=== PATIENT | female | born 1950 | race Caucasian/White ===

== ENCOUNTER → 2016-04-01 | Outpatient (REF) | payer MEDICARE ==
[~2016-04-01] MED LIST: CALCTAB75 PO; MULTCAP PO
[2016-04-01 13:11] LABS: EOSINOPHILS 1 % (0-5); PLATELET CLUMPS SMALL AMT
== END | disposition home or self-care (01) ==
LOC: M LAB REF 11:51
DX: E21.3 Hyperparathyroidism, unspecified (principal); D47.2 Monoclonal gammopathy; D35.1 Benign neoplasm of parathyroid gland; J44.9 Chronic obstructive pulmonary disease, unspecified

== ENCOUNTER → 2016-04-28 | Outpatient (CLI) | payer MEDICARE ==
[~2016-04-28] MED LIST changes: +ISOVUE-370 76% 100ML VIAL (Q9967) As Ordered ONE
--- NOTE | 2016-04-28 10:01 | REP ---
CT NECK WITH CONTRAST: HISTORY: Lymphoma. CONTRAST: Isovue 370, 75 mL. COMPARISON: 11/17/2015. The naso-, maxwell-, and hypopharynx, larynx and subglottic trachea are normal in appearance. The previously noted mass in the right hypopharynx is not seen in the present examination. The salivary glands are normal. The patient is status post resection of the left thyroid lobe. The right thyroid lobe is normal in appearance. Small lymph nodes less than 1 cm in size are present in the internal jugular chains, posterior triangles, submandibular and submental areas. Atherosclerotic calcification is present at the carotid bifurcations. Degenerative change is present in the cervical spine. The lung apices are clear. The sinuses are clear. A catheter is present in the right internal jugular vein. IMPRESSION: The previously noted right hypopharyngeal mass is not seen in the present examination. There is no residual tumor. Signed by Javi Trinidad MD 04/28/2016 10:03 A
--- NOTE | 2016-04-28 10:13 | REP ---
CT study of chest with IV contrast: History: Marginal zone lymphoma. Assess response, chemotherapy. Comparison is made with PET-CT study from December 03 2015. This showed hypermetabolic uptake in a right laryngeal and an anterior mediastinal focus. Comparison chest CT study is from November 17, 2015. This showed a 2.4 cm yoshi area in the anterior mediastinum. CT contrast dose: 75 ml of Isovue [address] findings: There is an [id number] catheter in place via the right internal jugular vein with its tip in the superior vena cava. The previously noted anterior mediastinal mass has regressed almost completely. There is a residual 5 mm soft tissue nodule at the site of the previously visible mass. No new mediastinal mass or adenopathy has developed. There are one or two stable paratracheal lymph nodes. Heavy vascular calcification is seen including coronary artery vascular calcification. No adrenal lesion is observed. There is a configurational variant of the liver again seen unchanged with absence or resection or atrophy of the left lobe. No axillary or extrathoracic adenopathy is seen. The left thyroid lobe is surgically absent. No bony destructive lesion is seen. No evidence of infiltrate or pulmonary parenchymal mass. Impression: The previously noted anterior mediastinal mass has regressed almost completely. No new mass or adenopathy is seen. Signed by Rigo Jung MD 04/28/2016 12:25 P
== END ==
LOC: M RAD 09:04
PROVIDERS: ATTEND Internal Medicine Medical Oncology
DX: C85.90 Non-Hodgkin lymphoma, unspecified, unspecified site (principal)
CPT/HCPCS: 70491; 71260; Q9967

== ENCOUNTER → 2016-11-05 | Outpatient (REF) | payer MEDICARE ==
[~2016-11-05] MED LIST changes: -ISOVUE-370 76% 100ML VIAL (Q9967) As Ordered ONE
[2016-11-05 14:06] LABS: FREE T4 1.11 NG/DL (0.76-1.46)
== END ==
LOC: M LAB REF 08:33
PROVIDERS: ATTEND Internal Medicine Medical Oncology
DX: C88.4 Extranodal marginal zone B-cell lymphoma of mucosa-associated lymphoid tissue [MALT-lymphoma] (principal); Z79.899 Other long term (current) drug therapy

== ENCOUNTER → 2016-11-23 | Outpatient (CLI) | payer MEDICARE ==
[~2016-11-23] MED LIST changes: +LIDOCAINE 2% MDV 20 ML VIAL As Ordered ONE
--- NOTE | 2016-12-01 09:18 | REPKIM ---
DATE OF PROCEDURE: 11/23/2016 PREPROCEDURE DIAGNOSES: Lymphoma. Right internal jugular vein Port-a-Cath. POSTPROCEDURE DIAGNOSES: Lymphoma. Right internal jugular vein Port-a-Cath. PROCEDURE: Right internal jugular vein Port-a-Cath removal. SURGEON: Dr. Latonya Solis ANESTHESIOLOGY CRNA: Emeli Larson and Judy Coelho. ANESTHESIA: Local with 10 mL of 2% lidocaine. COMPLICATION: None. DRAINS: None. SPECIMENS: None. IMPLANTS: None. INDICATION: The patient is a 66-year-old female with a previous placement of a right internal vein Port-a-Cath who no longer require the Port-a-Cath. The patient will undergo removal of the Port-a-Cath. DESCRIPTION OF PROCEDURE: The patient was taken to the angiograph suite and placed supine on the angiography room table and then prepped and draped in the standard surgical fashion. The skin overlying the Port-a-Cath was anesthetized with 2% lidocaine after which an incision was made and the Port-a-Cath was removed without any difficulty. The incision was closed using #2-0 Vicryl to approximate the deep layers and #3-0 Monocryl to approximate the skin in a running subcuticular fashion. Steri-Strips and dressings were applied. The patient tolerated the procedure well. All instruments, sponge and needle counts were correct at the end of the case. There were no complications. Dr Solis was present for and directed the entire case. The patient was transferred to the holding area and subsequently discharged in stable condition.
== END | disposition home or self-care (01) ==
LOC: M IRPRO 08:22
PROVIDERS: ATTEND Internal Medicine Medical Oncology
DX: Z45.2 Encounter for adjustment and management of vascular access device (principal); C85.90 Non-Hodgkin lymphoma, unspecified, unspecified site

== ENCOUNTER → 2016-12-03 | Outpatient (CLI) | payer MEDICARE ==
[~2016-12-03] MED LIST changes: -LIDOCAINE 2% MDV 20 ML VIAL As Ordered ONE
--- NOTE | 2016-12-03 10:52 | REP ---
MAXILLOFACIAL CT WITHOUT CONTRAST: HISTORY: Chronic maxillary sinusitis. The frontal sinuses are hypoplastic. Moderate mucosal thickening is present in the maxillary and right sphenoid sinuses. Mild mucosal thickening is present in the right ethmoid sinus. Minimal mucosal thickening is present in the frontal and left ethmoid sinuses. Mucosal thickening involves the osteomeatal units. The middle and inferior nasal turbinates are partially paradoxical. There is minimal deviation of the nasal septum to the left. The cribriform plate, medial kwok of the orbits and optic canals are intact. The carotid canals form a segment of the posterolateral kwok of the sphenoid sinus. IMPRESSION: Sinus mucosal thickening as described above. Signed by Javi Trinidad MD 12/03/2016 10:55 A
== END ==
LOC: M RAD 10:03
PROVIDERS: ATTEND Otolaryngology
DX: J32.0 Chronic maxillary sinusitis (principal)

== ENCOUNTER → 2017-02-08 | Outpatient (CLI) | payer MEDICARE ==
[~2017-02-08] MED LIST changes: +GASTROGRAFIN SOLUTION 30ML (Q9963) As Ordered ONE; +ISOVUE-370 76% 100ML VIAL (Q9967) As Ordered ONE
--- NOTE | 2017-02-09 17:05 | REP ---
CT CHEST WITH CONTRAST 02/08/2017 : Comparison: 04/28/2016, 11/17/2015 Clinical history: Non-Hodgkin's lymphoma with symptoms of cough and dyspnea, evaluate for recurrence or other. Technique: The patient received a bolus of 100 mL Isovue-370 scanning through the chest with coronal and sagittal reconstructions. The lung rasmussen are well inflated. No pleural thickening, calcified pleural plaque or acute infiltrate. No effusion, pneumothorax or pneumomediastinum. There are a few segmental bronchi equal to the size of adjacent segmental arteries that may reflect some very mild bronchiectatic change. No pulmonary nodules. The heart is not enlarged. There is no pericardial thickening or effusion. There are some calcifications in some of the coronary arteries. The aorta is without aneurysm or dissection and has calcifications at the arch and descending portion. The main, right and left pulmonary arteries and proximal lobar arteries are visible without filling defects. No pathologic sized mediastinal or hilar adenopathy. No residual mediastinal thymic mass nor pathologic sized adenopathy remaining. There is fluid in the superior pericardial recess adjacent to the ascending aorta, unchanged. No axillary adenopathy, specific chamber enlargement or pericardial thickening/effusion. No axillary or supraclavicular mass. Indwelling port catheter on the right side is removed. Bone windows show the sternum, manubrium, clavicles intact. The AC and glenohumeral joints show some degenerative changes but no destructive lesion or fractures. Scapula, ribs and thoracic spine without acute bony findings. There is no hiatal hernia. The upper abdomen will be described in detail on the CT abdomen pelvis report. Impression: 1. No evidence of mediastinal mass or recurrent tumor mass/adenopathy in the mediastinum. 2. No pathologic sized adenopathy in the axilla supraclavicular region. Merry or remainder of the mediastinum. 3. Heart not enlarged. Some coronary calcifications seen. Aorta without aneurysm or dissection and the central pulmonary arteries without filling defects. Bones intact. No other significant finding. Signed by Wolf Galdamez MD 02/09/2017 05:28 P
--- NOTE | 2017-02-09 17:09 | REP ---
CT ABDOMEN AND PELVIS WITHOUT AND WITH CONTRAST: 02/08/2017. Comparison: CT 11/17/2015. Clinical history: Non-Hodgkin's lymphoma with some recurrent chest symptoms. Evaluate for recurrence in the abdomen or pelvis. Technique: Oral Gastrografin mixture 10 mL in 290 mL flavored water for two doses per our bowel contrast protocol with scanning through the abdomen followed by bolus of 100 mL Isovue 370 with scanning through the abdomen and pelvis and delayed scanning through the abdomen. Findings: CT abdomen. No hiatal hernia. Stomach well distended with oral contrast, with contrast seen throughout small bowel loops which are not abnormally dilated and some reaches the cecum and proximal right colon. There is no hepatosplenomegaly, focal hepatic or splenic lesion, intrahepatic biliary dilatation or adjacent ascites to the liver or the spleen. Gallbladder folded on itself without calcified stone or mass. Appearance unchanged. Pancreas without mass, ductal dilatation, abnormal calcification, inflammatory changes or adenopathy adjacent. Adrenal gland show thickening of limbs on the left and right, unchanged. The aorta has atherosclerotic calcification without aneurysm. No periaortic or other retroperitoneal pathologic sized lymphadenopathy. There is a retroaortic left renal vein as anatomic variation. No periaortic or retroperitoneal pathologic sized lymphadenopathy nor is there mesenteric or retroperitoneal masses visible. Small bowel loops contrast and fluid-filled but not abnormally dilated and without wall thickening, mass or adjacent inflammatory change in the mesentery. Stool and gas scattered in the colon. The right colon is collapsed with questionable wall thickening while the transverse colon portion of the hepatic flexure, the entire splenic flexure were intact. Left colon without colitis or diverticulitis and the right colon mild colitis is not excluded with a collapsed appearance and somewhat thickened wall. No adjacent inflammatory change, however. Kidneys show a few tiny peripheral cysts on the right while there is an exophytic cyst on the left lower pole about 3.2 cm, on the previous exam 3 cm. This is just inferior to the adjacent margin of the lower tip of the spleen. There is another exophytic cyst anterior to it in the lateral aspect lower pole about 11 mm. A few scattered diverticula without signs of diverticulitis. There are surgical clips along the peritoneal gutters on the left and into the pelvis. CT pelvis: Small bowel loops grossly intact. There are surgical clips along the left peritoneal gutter into the deep pelvis. Uterus intact. Some anastomotic sutures are noted. The pelvis shows no visible mass. No adnexal mass or pelvic free fluid. Thickening of the wall of the cecum, which may reflect some mild colitis and a similar appearance is seen in that right colon to the hepatic flexure. No adjacent inflammatory change. I do not see a dilated or inflamed appendix on this study. No pelvic lymphadenopathy, inguinal adenopathy, ventral or inguinal hernia. Bone windows show lumbar and lower thoracic vertebral levels without compression deformity. There are marginal osteophytes and disc space narrowing at several levels in the lower thoracic and mid lumbar spine without compression deformity or destructive lesion. Some facet arthropathy seen. Lower ribs intact. In the pelvis, the sacrum, SI joints, iliac bones, hips, acetabuli and symphysis pubis were all grossly intact. Impression: 1. There is no CT evidence of abdominal or pelvic adenopathy. 2. Thickening of the wall of the right colon and cecum with some edema, but no adjacent inflammatory change in the fat. This may reflect some mild colitis. I do not see inflammatory changes about the distal right colon, cecum to suggest appendicitis. No visible appendix is seen on this study. 3. Atherosclerotic calcification aorta and branches without aneurysm. No obstruction. Small bowel loops and remainder of the colon were unremarkable. A few left renal cysts. Kidneys otherwise unremarkable and the gallbladder and pancreas without acute finding. 4. No evidence of recurrence of lymphoma. No adenopathy, mesenteric mass, acute bony finding or other significant abnormality. Signed by Wolf Galdamez MD 02/09/2017 05:29 P
== END ==
LOC: M RAD 15:42
PROVIDERS: ATTEND Internal Medicine Medical Oncology
DX: C85.80 Other specified types of non-Hodgkin lymphoma, unspecified site (principal); R05 Cough; R06.02 Shortness of breath; R93.5 Abnormal findings on diagnostic imaging of other abdominal regions, including retroperitoneum
CPT/HCPCS: 71260; 74178; Q9963; Q9967

== ENCOUNTER → 2017-03-11 | Outpatient (REF) | payer MEDICARE | LOC: M LAB REF 14:44 | DX: R05 Cough (principal) | CPT/HCPCS: 87205 ==

== ENCOUNTER 2017-03-18 08:21 | Day surgery (SDC) | payer MEDICARE ==
[2017-03-18] MEDS ORDERED: NS 1,000 ML IV ×2 (09:00)
[2017-03-18] MEDS ORDERED: PROPOFOL 200 MG/20 ML VIAL As Ordered ×2 (10:16)
[2017-03-18] MEDS ORDERED: LIDOCAINE 2% INJ 100 MG/5 ML SDV (FOR ANES.) As Ordered ×2 (10:16)
== END 2017-03-18 11:08 | disposition home or self-care (01) ==
LOC: M OPP 08:21
DX: K64.8 Other hemorrhoids (principal); D12.5 Benign neoplasm of sigmoid colon; R93.3 Abnormal findings on diagnostic imaging of other parts of digestive tract; I10 Essential (primary) hypertension; M81.0 Age-related osteoporosis without current pathological fracture; J44.9 Chronic obstructive pulmonary disease, unspecified; M19.90 Unspecified osteoarthritis, unspecified site; D47.2 Monoclonal gammopathy; Z91.048 Other nonmedicinal substance allergy status; Z85.72 Personal history of non-Hodgkin lymphomas; Z93.3 Colostomy status; Z90.89 Acquired absence of other organs; Z78.0 Asymptomatic menopausal state; Z80.0 Family history of malignant neoplasm of digestive organs; Z80.1 Family history of malignant neoplasm of trachea, bronchus and lung; Z80.3 Family history of malignant neoplasm of breast
CPT/HCPCS: 45385

== ENCOUNTER → 2017-04-18 | Outpatient (REF) | payer MEDICARE ==
[2017-04-18 14:21] LABS: BANDS 1 % (< 11); LYMPHOCYTES 6 % (16-52); MONOCYTES 8 % (0-8); NEUTROPHILS 85 % (35-75); PLATELET ESTIMATE NORMAL (NORMAL)
== END ==
LOC: M LAB REF 13:38
DX: C88.4 Extranodal marginal zone B-cell lymphoma of mucosa-associated lymphoid tissue [MALT-lymphoma] (principal)
CPT/HCPCS: 85007

== ENCOUNTER → 2017-10-04 | Outpatient (REF) | payer MEDICARE ==
[2017-10-04 13:57] LABS: TOTAL PROTEIN 6.7 GM/DL (6.4-8.2)
[2017-10-04 14:11] LABS: IMMUNOGLOBULIN A 44.5 MG/DL (70-400); IMMUNOGLOBULIN G 459 MG/DL (681-1648); IMMUNOGLOBULIN M 132 MG/DL (40-230)
[2017-10-05 14:15] LABS: FREE KAPPA LIGHT CHAINS SERUM 23.6 mg/L (3.3-19.4); FREE LAMBDA LIGHT CHAINS SERUM 10.5 mg/L (5.7-26.3); KAPPA/LAMBDA RATIO SERUM 2.25 (0.26-1.65)
[2017-10-06 11:49] LABS: ALBUMIN % 62.7 % (55.8-66.1); ALPHA-1-GLOBULIN % 5.1 % (2.9-4.9); ALPHA-1-GLOBULINS 0.37 GM/DL (0.17-0.41); ALPHA-2-GLOBULINS 0.98 GM/DL (0.42-0.99); ALPHA-2-GLOBULINS % 14.6 % (7.1-11.8); BETA-1-GLOBULINS 0.44 GM/DL (0.28-0.60); BETA-1-GLOBULINS % 6.5 % (4.7-7.2); BETA-2-GLOBULINS 0.25 GM/DL (0.19-0.55); BETA-2-GLOBULINS % 3.8 % (3.2-6.5); GAMMA GLOBULIN % 7.3 % (11.1-18.8); GAMMA GLOBULINS 0.49 GM/DL (0.65-1.58)
== END ==
LOC: M LAB REF 13:32
DX: C88.4 Extranodal marginal zone B-cell lymphoma of mucosa-associated lymphoid tissue [MALT-lymphoma] (principal)
CPT/HCPCS: 84165

== ENCOUNTER → 2017-10-28 | Outpatient (CLI) | payer MEDICARE | LOC: M LAB 14:28 | DX: R06.2 Wheezing (principal) | CPT/HCPCS: 71046 ==

== ENCOUNTER → 2018-05-15 | Outpatient (CLI) | payer MEDICARE ==
[~2018-05-15] MED LIST changes: +ANOR1AER IN; -ISOVUE-370 76% 100ML VIAL (Q9967) As Ordered ONE; +ISOVUE-370 76% 125ML VIAL (Q9967 PER ML) As Ordered ONE; +MIRA3350 PO; +OMEP40CA2 PO
--- NOTE | 2018-05-15 15:13 | REP ---
Clinical: History of lymphoma for restaging. Technique: Axial contrast enhanced images from the lung bases to the pubic symphysis using oral (per protocol) and 100 ml Isovue 370 intravenous contrast material with precontrast and delayed images of the abdomen as well as coronal and sagittal re-formations. Comparison: 02/08/2017. Findings: Lung bases are clear. Visualized heart and pericardium within normal limits. Liver, spleen, pancreas, gallbladder, and bilateral adrenal glands are normal / stable. Kidneys demonstrate stable simple cysts measuring up to approximately 3.1 cm at the left kidney. The enteric system is without obstruction or acute inflammatory process. Pelvis demonstrates normal bladder and age-appropriate uterus/adnexa. Surgical clips within the left lower quadrant and pelvis are again noted and stable. No mass lesion, adenopathy, ascites. Atherosclerotic changes of the aorta and vasculature noted without aneurysm or dissection. Musculoskeletal structures demonstrate degenerative changes without focal osseous abnormality. Impression: 1. No evidence for recurrence related to lymphoma. No adenopathy. No ascites. No mass lesion. 2. Stable simple appearing bilateral renal cysts measuring up to 3.1 cm in the left kidney. 3. No acute abdominopelvic pathology appreciated. Electronically Signed by Ronak Masters MD 05/15/2018 03:04 P
--- NOTE | 2018-05-15 15:16 | REP ---
Clinical: History of lymphoma for restaging. Technique: Axial contrast enhanced images from the thoracic inlet to the upper abdomen with coronal and sagittal re-formations using 100 ml Isovue 370 intravenous contrast material. Comparison: 02/08/2017. Findings: Bilateral lung rasmussen are well-aerated and clear. No consolidation, significant nodule or mass lesion. No pleural effusion or pneumothorax. Tracheobronchial tree is patent. No significant axillary, hilar, or mediastinal adenopathy noted. Atherosclerotic changes to the thoracic aorta and coronary arteries noted without aortic aneurysm or dissection. No cardiomegaly or pericardial effusion. Musculoskeletal structures demonstrate age-related changes without focal osseous abnormality. Impression: 1. Atherosclerotic changes to the thoracic aorta and coronary arteries. 2. No acute mediastinal or pleuroparenchymal process appreciated. 3. No adenopathy or evidence for recurrence related to lymphoma. Electronically Signed by Ronak Masters MD 05/15/2018 03:07 P
--- NOTE | 2018-05-15 16:30 | REP ---
CT NECK WITH CONTRAST: COMPARISON: 04/28/2016 HISTORY: Lymphoma. CONTRAST: Isovue-370, 100 mL The naso-, maxwell-, and hypopharynx, larynx and subglottic area normal in appearance. The salivary glands and right thyroid lobe are normal in density. The patient is status-post resection of the left thyroid lobe. Small lymph nodes left less than 1 cm in size are present in the internal jugular chains, posterior triangles and submandibular areas. Atherosclerotic calcification is present at the carotid bifurcations. Degenerative change is present in the cervical spine. The lung apices are clear. Minimal mucosal thickening is present in the maxillary sinuses. IMPRESSION:There is no neck mass or adenopathy. Electronically Signed by Javi Trinidad MD 05/15/2018 04:36 P
== END ==
LOC: M RAD 13:07
PROVIDERS: ATTEND Internal Medicine Hematology & Oncology
DX: C88.4 Extranodal marginal zone B-cell lymphoma of mucosa-associated lymphoid tissue [MALT-lymphoma] (principal); N28.1 Cyst of kidney, acquired; Z90.89 Acquired absence of other organs
CPT/HCPCS: 70491; 71260; 74178; Q9963; Q9967

== ENCOUNTER → 2018-10-02 | Outpatient (REF) | payer MEDICARE ==
[~2018-10-02] MED LIST changes: -GASTROGRAFIN SOLUTION 30ML (Q9963) As Ordered ONE; -ISOVUE-370 76% 125ML VIAL (Q9967 PER ML) As Ordered ONE
[2018-10-02 14:19] LABS: TOTAL PROTEIN,RANDOM URINE 14.4 MG/DL (0.0-12.0); URINE TOTAL PROTEIN 14.4 MG/DL (0-12)
== END ==
LOC: M LAB REF 11:40
PROVIDERS: ATTEND Internal Medicine Hematology & Oncology
DX: C88.4 Extranodal marginal zone B-cell lymphoma of mucosa-associated lymphoid tissue [MALT-lymphoma] (principal)

== ENCOUNTER → 2018-10-17 | Outpatient (REF) | payer MEDICARE ==
[2018-10-17 17:54] LABS: BILIRUBIN,DIRECT 0.1 MG/DL (0.0-0.2); BILIRUBIN,TOTAL 0.5 MG/DL (0.2-1.0)
== END ==
LOC: M LAB REF 16:46
PROVIDERS: ATTEND Internal Medicine Nephrology
DX: Z85.71 Personal history of Hodgkin lymphoma (principal)

== ENCOUNTER → 2018-10-27 | Outpatient (CLI) | payer MEDICARE ==
--- NOTE | 2018-10-27 13:10 | REP ---
Clinical: Chronic stage III medical renal disease. Technique: Real time rain scale ultrasound examination using curved array transducer. Findings: Bilateral kidneys are echogenic but normal in reniform shape without hydronephrosis, obvious nephrolithiasis, renal mass lesion or perinephric stranding. Right kidney measures 9.8 x 4.3 x 4.5 cm and includes 1.3 cm lower pole simple cyst. Left kidney measures 9.2 x 3.7 x 4.0 cm and includes 4.2 cm simple exophytic upper pole cyst and 1.3 cm medial complex cyst. Impression: Evidence for chronic medical renal disease along with bilateral simple and complex likely benign cysts. No hydronephrosis. Electronically Signed by Ronak Masters MD 10/27/2018 01:01 P
--- NOTE | 2018-10-27 14:30 | REP ---
URINARY BLADDER ULTRASOUND: Real-time sonographic evaluation of the urinary bladder performed. Bladder measures 8.3 x 9.8 x 6.7 cm for a total volume of 356 mL. There is no mass or calculus. There are bilateral ureteral jets in the urinary bladder with Doppler color evaluation. With voiding, there is complete emptying with no postvoid residual. IMPRESSION: Unremarkable urinary bladder ultrasound as discussed in detail above. Electronically Signed by Dallas Guzmán MD 10/27/2018 04:34 P
== END ==
LOC: M RAD 11:42
PROVIDERS: ATTEND Internal Medicine Nephrology
DX: N18.3 Chronic kidney disease, stage 3 (moderate) (principal); Z85.71 Personal history of Hodgkin lymphoma; E21.3 Hyperparathyroidism, unspecified; N28.1 Cyst of kidney, acquired

== ENCOUNTER → 2019-04-23 | Outpatient (REF) | payer MEDICARE ==
[~2019-04-23] MED LIST changes: +CINA30TA4 PO; +LOSA25TA14 PO; +MAGN250T7 PO; -OMEP40CA2 PO; +OMEP40CA97 PO
[2019-04-24 14:10] LABS: FOLATE > 24.0 NG/ML; VITAMIN B12 LEVEL 652 PG/ML
== END ==
LOC: M LAB REF 13:17
PROVIDERS: ATTEND Internal Medicine Nephrology
DX: D53.1 Other megaloblastic anemias, not elsewhere classified (principal)

== ENCOUNTER → 2019-08-31 | Outpatient (CLI) | payer MEDICARE ==
[~2019-08-31] MED LIST changes: +B-12100021 PO; +FOLI1TAB11 PO
--- NOTE | 2019-09-01 08:38 | REP ---
REASON: History of chronic renal disease. COMPARISON: 10/27/2009, which showed evidence of medical renal disease and bilateral cysts. Right kidney measures 8.8 x 5 x 4.5 cm. Left kidney measures 8.3 x 3.7 x 4.3 cm. The renal cortical echoes are unchanged. Cortical medullary differentiation is preserved. The right renal RI is 0.74 and the left is 0.74. Bilateral renal cystic structures, status quo. There is no hydronephrosis. There are no new renal abnormalities. IMPRESSION: No significant change from the prior exam.
== END ==
LOC: M WHC 09:40
PROVIDERS: ATTEND Internal Medicine Nephrology
DX: N18.3 Chronic kidney disease, stage 3 (moderate) (principal); N28.1 Cyst of kidney, acquired; I12.9 Hypertensive chronic kidney disease with stage 1 through stage 4 chronic kidney disease, or unspecified chronic kidney disease

== ENCOUNTER → 2020-03-03 | Outpatient (REF) | payer MEDICARE | LOC: M LAB REF 10:59 | PROVIDERS: ATTEND Nurse Practitioner Adult Health | DX: M81.8 Other osteoporosis without current pathological fracture (principal) ==

== ENCOUNTER → 2020-09-01 | Outpatient (REF) | payer MEDICARE ==
[~2020-09-01] MED LIST changes: +FOLI800C PO; +MULT-90 PO; +OMEP40CA4 PO; -OMEP40CA97 PO
== END ==
LOC: M LAB REF 16:26
PROVIDERS: ATTEND Nurse Practitioner Adult Health
DX: Z79.899 Other long term (current) drug therapy (principal)

== ENCOUNTER → 2021-05-08 | Outpatient (REF) | payer MEDICARE ==
[~2021-05-08] MED LIST changes: +LOSA25TA13 PO; -LOSA25TA14 PO; +VITA200032 PO
[2021-05-08 12:25] LABS: INR 1.65; PARTIAL THROMBOPLASTIN TIME 29.9 SECONDS (25.9-37.0); PROTHROMBIN TIME 19.9 SECONDS (12.7-14.5)
== END ==
LOC: M LAB REF 12:02
PROVIDERS: ATTEND Nurse Practitioner Adult Health
DX: I70.512 Atherosclerosis of nonautologous biological bypass graft(s) of the extremities with intermittent claudication, left leg (principal); Z79.899 Other long term (current) drug therapy

== ENCOUNTER → 2021-06-11 | Outpatient (CLI) | payer MEDICARE | LOC: M LABSMTC 09:50 | PROVIDERS: ATTEND Surgery Vascular Surgery | DX: Z11.52 Encounter for screening for COVID-19 (principal) ==

== ENCOUNTER → 2021-08-14 | Outpatient (REF) | payer MEDICARE ==
[~2021-08-14] MED LIST changes: +AMLO25TA PO; +ANOR1AER PO; +ASPI81CH33 PO; +ATOR80TA59 PO; +XARE20TA PO
== END ==
LOC: M LAB REF 12:26
PROVIDERS: ATTEND Nurse Practitioner Adult Health
DX: Z79.899 Other long term (current) drug therapy (principal)

== ENCOUNTER → 2021-08-31 | Outpatient (CLI) | payer MEDICARE ==
[~2021-08-31] MED LIST changes: +PROL60SO SC
== END ==
LOC: M LABSMTC 09:47
PROVIDERS: ATTEND Anesthesiology
DX: Z20.822 Contact with and (suspected) exposure to COVID-19 (principal)

== ENCOUNTER 2021-09-04 08:52 | Day surgery (SDC) | payer MEDICARE ==
[~2021-09-04] VITALS: Ht 160 cm; Wt 70.9 kg
[~2021-09-04 08:52] MED LIST changes: +NS 1,000 ML IV ONE
[2021-09-04] MEDS ORDERED: propofoL 200 MG/20 ML VIAL As Ordered ONE (10:51)
[2021-09-04] MEDS ORDERED: GLYCOPYRROLATE INJ 0.2 MG/ML 2 ML VIAL As Ordered ONE (11:21)
[2021-09-04 11:25] VITALS: BP 127/61
== END 2021-09-04 11:40 | disposition home or self-care (01) ==
LOC: M OPP 08:52
PROVIDERS: ATTEND Internal Medicine Gastroenterology
DX: Z12.11 Encounter for screening for malignant neoplasm of colon (principal); Z86.010 Personal history of colon polyps; Z80.0 Family history of malignant neoplasm of digestive organs; K63.5 Polyp of colon; K63.89 Other specified diseases of intestine; K57.30 Diverticulosis of large intestine without perforation or abscess without bleeding; K64.8 Other hemorrhoids; N18.30 Chronic kidney disease, stage 3 unspecified; J44.9 Chronic obstructive pulmonary disease, unspecified; I12.9 Hypertensive chronic kidney disease with stage 1 through stage 4 chronic kidney disease, or unspecified chronic kidney disease; D69.1 Qualitative platelet defects; D47.2 Monoclonal gammopathy; Z80.1 Family history of malignant neoplasm of trachea, bronchus and lung; Z85.72 Personal history of non-Hodgkin lymphomas; Z92.3 Personal history of irradiation; Z79.01 Long term (current) use of anticoagulants; Z79.02 Long term (current) use of antithrombotics/antiplatelets; Z79.82 Long term (current) use of aspirin; Z79.899 Other long term (current) drug therapy; Z91.040 Latex allergy status; Z91.048 Other nonmedicinal substance allergy status

== ENCOUNTER → 2021-09-09 | Outpatient (CLI) | payer MEDICARE ==
[~2021-09-09] MED LIST changes: -NS 1,000 ML IV ONE
== END ==
LOC: M WHC 15:21
PROVIDERS: ATTEND Nurse Practitioner Adult Health
DX: R92.2 Inconclusive mammogram (principal)

== ENCOUNTER → 2022-02-02 | Outpatient (CLI) | payer MEDICARE | LOC: M RAD 11:09 | PROVIDERS: ATTEND Physician Assistant | DX: I70.293 Other atherosclerosis of native arteries of extremities, bilateral legs (principal); Z48.812 Encounter for surgical aftercare following surgery on the circulatory system ==

== ENCOUNTER → 2022-09-23 | Outpatient (CLI) | payer MEDICARE, BC | LOC: M WHC 12:23 | PROVIDERS: ATTEND Nurse Practitioner Adult Health | DX: Z12.31 Encounter for screening mammogram for malignant neoplasm of breast (principal) ==

== ENCOUNTER → 2022-10-04 | Outpatient (CLI) | payer MEDICARE, BC | LOC: M WHC 12:22 | PROVIDERS: ATTEND Nurse Practitioner Adult Health | DX: R92.8 Other abnormal and inconclusive findings on diagnostic imaging of breast (principal) ==

== ENCOUNTER → 2022-10-14 | Outpatient (CLI) | payer MEDICARE, BC | LOC: M WHC 11:24 | PROVIDERS: ATTEND Nurse Practitioner Adult Health | DX: N63.20 Unspecified lump in the left breast, unspecified quadrant (principal); R92.1 Mammographic calcification found on diagnostic imaging of breast ==

== ENCOUNTER → 2022-10-14 | Outpatient (CLI) | payer MEDICARE, BC ==
[~2022-10-14] MED LIST changes: +LIDOCAINE 1% MDV 20ML VIAL As Ordered ONE
[2022-10-14 09:25] LABS: HEMATOCRIT 42.3 % (36.0-47.0); HEMOGLOBIN 13.8 g/dl (12.0-15.5); MEAN CORPUSCULAR HGB CONC 32.6 g/dl (32.0-36.5); MEAN CORPUSCULAR VOLUME 95.1 fl (80.0-96.0); PLATELET COUNT, AUTOMATED 260 10^3/uL (150-450); RED BLOOD COUNT 4.45 10^6/uL (4.00-5.40); WHITE BLOOD COUNT 9.8 10^3/uL (4.0-10.0)
[2022-10-14 09:39] LABS: INR 1.09; PROTHROMBIN TIME 13.8 SECONDS (12.5-14.5)
[2022-10-14 09:50] VITALS: TEMP 97
[2022-10-14 10:48] VITALS: BP 134/68; O2SAT 96
== END ==
LOC: M IRPRO 08:42
PROVIDERS: ATTEND Nurse Practitioner Adult Health
DX: C50.411 Malignant neoplasm of upper-outer quadrant of right female breast (principal); N63.11 Unspecified lump in the right breast, upper outer quadrant; R92.1 Mammographic calcification found on diagnostic imaging of breast

== ENCOUNTER → 2022-10-29 | Outpatient (CLI) | payer MEDICARE, BC ==
[~2022-10-29] MED LIST changes: -LIDOCAINE 1% MDV 20ML VIAL As Ordered ONE
[2022-10-29 14:14] LABS: CALCIUM LEVEL 8.9 MG/DL (8.3-10.6); CREATININE FOR GFR 1.53 MG/DL (0.55-1.30); GLOMERULAR FILTRATION RATE 35.4 (>39); POTASSIUM SERUM 4.3 MMOL/L (3.5-5.1)
== END ==
LOC: M PLALAB 09:25
PROVIDERS: ATTEND Surgery
DX: C50.911 Malignant neoplasm of unspecified site of right female breast (principal)

== ENCOUNTER → 2022-11-02 | Outpatient (CLI) | payer MEDICARE, BC ==
[~2022-11-02] MED LIST changes: +PROHANCE 279.3MG/ML 5ML VIAL As Ordered ONE
== END ==
LOC: M RAD 11:07
PROVIDERS: ATTEND Surgery
DX: C50.911 Malignant neoplasm of unspecified site of right female breast (principal)
CPT/HCPCS: A9576; C8908

== ENCOUNTER → 2022-11-26 | Outpatient (CLI) | payer MEDICARE, BC ==
[~2022-11-26] MED LIST changes: +AMLO1TAB24 PO; +LETR2.5T2 PO; +OXYC-517 PO; -PROHANCE 279.3MG/ML 5ML VIAL As Ordered ONE
== END ==
LOC: M ONCR 14:19
PROVIDERS: ATTEND General Practice
DX: C50.411 Malignant neoplasm of upper-outer quadrant of right female breast (principal); Z87.891 Personal history of nicotine dependence; Z91.040 Latex allergy status; Z79.891 Long term (current) use of opiate analgesic; Z79.82 Long term (current) use of aspirin; Z79.899 Other long term (current) drug therapy; Z80.3 Family history of malignant neoplasm of breast; Z85.72 Personal history of non-Hodgkin lymphomas; J44.9 Chronic obstructive pulmonary disease, unspecified

== ENCOUNTER 2022-12-07 13:36 | Outpatient (RCR) | payer MEDICARE, BC | END 2022-12-21 | LOC: M ONCR 13:36 | PROVIDERS: ATTEND General Practice | DX: Z51.0 Encounter for antineoplastic radiation therapy (principal); C50.411 Malignant neoplasm of upper-outer quadrant of right female breast ==

== ENCOUNTER → 2022-12-08 | Outpatient (CLI) | payer MEDICARE, BC | LOC: M WHC 09:52 | PROVIDERS: ATTEND Internal Medicine Medical Oncology | DX: M85.80 Other specified disorders of bone density and structure, unspecified site (principal); C50.911 Malignant neoplasm of unspecified site of right female breast; Z79.83 Long term (current) use of bisphosphonates ==

== ENCOUNTER 2023-01-04 12:45 | Outpatient (RCR) | payer MEDICARE, BC | END 2023-01-20 | LOC: M ONCR 12:45 | PROVIDERS: ATTEND General Practice | DX: Z51.0 Encounter for antineoplastic radiation therapy (principal); C50.411 Malignant neoplasm of upper-outer quadrant of right female breast ==

== ENCOUNTER → 2023-02-16 | Outpatient (CLI) | payer MEDICARE, BC ==
[~2023-02-16] MED LIST changes: +EXEM25TA PO; +VALA1TAB5
== END ==
LOC: M RAD 11:53
PROVIDERS: ATTEND Physician Assistant
DX: I73.9 Peripheral vascular disease, unspecified (principal)

== ENCOUNTER → 2023-06-08 | Outpatient (CLI) | payer MEDICARE, OTHER | LOC: M RAD 14:40 | PROVIDERS: ATTEND Internal Medicine Medical Oncology | DX: Z87.891 Personal history of nicotine dependence (principal) ==

== ENCOUNTER → 2023-06-08 | Outpatient (CLI) | payer MEDICARE, OTHER ==
[~2023-06-08] MED LIST changes: +ISOVUE-370 76% 100ML VIAL As Ordered ONE
== END ==
LOC: M RAD 13:55
PROVIDERS: ATTEND Nurse Practitioner Adult Health
DX: R22.1 Localized swelling, mass and lump, neck (principal); Z12.2 Encounter for screening for malignant neoplasm of respiratory organs; Z87.891 Personal history of nicotine dependence
CPT/HCPCS: 70491; 71271; Q9967

== ENCOUNTER → 2023-07-05 | Outpatient (CLI) | payer MEDICARE, OTHER ==
[~2023-07-05] MED LIST changes: -ISOVUE-370 76% 100ML VIAL As Ordered ONE
== END ==
LOC: M ONCR 12:44
PROVIDERS: ATTEND General Practice
DX: R22.1 Localized swelling, mass and lump, neck (principal); Z85.3 Personal history of malignant neoplasm of breast; Z85.72 Personal history of non-Hodgkin lymphomas; Z71.2 Person consulting for explanation of examination or test findings; Z79.811 Long term (current) use of aromatase inhibitors; Z87.891 Personal history of nicotine dependence; Z79.01 Long term (current) use of anticoagulants; Z79.82 Long term (current) use of aspirin; Z79.899 Other long term (current) drug therapy; Z91.040 Latex allergy status; Z91.048 Other nonmedicinal substance allergy status; Z92.3 Personal history of irradiation

== ENCOUNTER → 2023-07-06 | Outpatient (CLI) | payer MEDICARE, OTHER ==
[~2023-07-06] MED LIST changes: +LIDOCAINE 1% MDV 20ML VIAL As Ordered ONE
[2023-07-06 08:06] VITALS: TEMP 97.6
[2023-07-06 08:45] VITALS: BP 144/65; O2SAT 96
== END ==
LOC: M IRPRO 07:56
PROVIDERS: ATTEND Otolaryngology
DX: R59.0 Localized enlarged lymph nodes (principal)

== ENCOUNTER → 2023-07-20 | Outpatient (CLI) | payer MEDICARE, OTHER ==
[~2023-07-20] MED LIST changes: +CETACAINE SPRAY 5GM MT ONE; -LIDOCAINE 1% MDV 20ML VIAL As Ordered ONE
== END ==
LOC: M ONCR 12:44
PROVIDERS: ATTEND General Practice
DX: C85.19 Unspecified B-cell lymphoma, extranodal and solid organ sites (principal); K14.8 Other diseases of tongue; S02.5XXA Fracture of tooth (traumatic), initial encounter for closed fracture; Z85.3 Personal history of malignant neoplasm of breast; Z71.2 Person consulting for explanation of examination or test findings; Z79.01 Long term (current) use of anticoagulants; Z79.811 Long term (current) use of aromatase inhibitors; Z79.82 Long term (current) use of aspirin; Z79.899 Other long term (current) drug therapy; Z87.891 Personal history of nicotine dependence; Z91.040 Latex allergy status; Z91.048 Other nonmedicinal substance allergy status
CPT/HCPCS: 31575; G0463

== ENCOUNTER → 2023-08-01 | Outpatient (CLI) | payer MEDICARE, OTHER ==
[~2023-08-01] MED LIST changes: -CETACAINE SPRAY 5GM MT ONE
== END ==
LOC: M PLARAD 10:18
PROVIDERS: ATTEND General Practice
DX: C50.411 Malignant neoplasm of upper-outer quadrant of right female breast (principal)
CPT/HCPCS: 78815; A9552

== ENCOUNTER 2023-08-11 13:39 | Outpatient (RCR) | payer MEDICARE, OTHER ==
[2023-08-23] MEDS ORDERED: LIDO30CR18 TOP (10:38)
[2023-08-23] MEDS ORDERED: ONDA-84 PO (10:38)
[2023-08-23] MEDS ORDERED: PROC10TA5 PO (10:38)
== END 2023-08-21 ==
LOC: M ONCR 13:39
PROVIDERS: ATTEND General Practice
DX: Z51.0 Encounter for antineoplastic radiation therapy (principal); C50.411 Malignant neoplasm of upper-outer quadrant of right female breast; C85.19 Unspecified B-cell lymphoma, extranodal and solid organ sites

== ENCOUNTER → 2023-08-16 | Outpatient (CLI) | payer MEDICARE, OTHER ==
[~2023-08-16] VITALS: Ht 160 cm; Wt 65.9 kg
[~2023-08-16] MED LIST changes: +LIDOCAINE 1% MDV 20ML VIAL As Ordered ONE; +LIDOCAINE W/EPINEPHRINE 1% 20ML VIAL As Ordered ONE; +MIDAZOLAM INJ 2MG/2ML VIAL As Ordered ONE; +ceFAZolin 2 GM/D5W 50 ML IV BAG As Ordered ONE; +fentaNYL 100 MCG/2 ML INJECTION As Ordered ONE
[2023-08-16 12:48] VITALS: TEMP 97
[2023-08-16] MEDS: NS 1,000 ML IV SCH (13:12)
[2023-08-16] MEDS: ceFAZolin SOD 2 GM in IV 1 EA IV ONE (13:12)
[2023-08-16 15:00] VITALS: BP 151/71; O2SAT 96
== END ==
LOC: M IRPRO 12:28
PROVIDERS: ATTEND Internal Medicine Medical Oncology
DX: C88.4 Extranodal marginal zone B-cell lymphoma of mucosa-associated lymphoid tissue [MALT-lymphoma] (principal); C50.911 Malignant neoplasm of unspecified site of right female breast; C02.9 Malignant neoplasm of tongue, unspecified
CPT/HCPCS: 36561; 99152; 99153; C1769; J0690; J2250; J3010

== ENCOUNTER → 2023-08-22 | Outpatient (CLI) | payer MEDICARE, OTHER ==
[~2023-08-22] MED LIST changes: +LIDO30CR18 TOP; -LIDOCAINE 1% MDV 20ML VIAL As Ordered ONE; -LIDOCAINE W/EPINEPHRINE 1% 20ML VIAL As Ordered ONE; -MIDAZOLAM INJ 2MG/2ML VIAL As Ordered ONE; +ONDA-84 PO; +PROC10TA5 PO; -ceFAZolin 2 GM/D5W 50 ML IV BAG As Ordered ONE; -fentaNYL 100 MCG/2 ML INJECTION As Ordered ONE
== END ==
LOC: M RAD 12:19
PROVIDERS: ATTEND Physician Assistant
DX: I73.9 Peripheral vascular disease, unspecified (principal)

== ENCOUNTER → 2023-09-21 | Outpatient (RCR) | payer MEDICARE ==
[~2023-09-21] MED LIST changes: +LIDO15SO8 PO; +MORP15TA2 PO; +OXYC1SOL3 PO
== END ==
LOC: M ONCR 08-22 14:01
PROVIDERS: ATTEND General Practice
DX: Z51.0 Encounter for antineoplastic radiation therapy (principal); C01 Malignant neoplasm of base of tongue

== ENCOUNTER 2023-10-10 09:19 | Outpatient (RCR) | payer MEDICARE ==
[~2023-10-10 09:19] MED LIST changes: +LACT20EL PO
[2023-10-10] MEDS ORDERED: MUCI1LIQ3 PO (10:22)
[2023-10-27] MEDS ORDERED: MELO15TA28 PO (09:56)
[2023-10-27] MEDS ORDERED: TRAZ1TAB11 PO (09:59)
== END 2023-10-22 ==
LOC: M ONCR 09:19
PROVIDERS: ATTEND General Practice
DX: Z51.0 Encounter for antineoplastic radiation therapy (principal); C01 Malignant neoplasm of base of tongue

== ENCOUNTER → 2023-10-17 | Outpatient (CLI) | payer MEDICARE, OTHER ==
[~2023-10-17] MED LIST changes: +MELO15TA28 PO; +MUCI1LIQ3 PO; +TRAZ1TAB11 PO
== END ==
LOC: M ONCR 09:21
PROVIDERS: ATTEND General Practice
DX: Z01.89 Encounter for other specified special examinations (principal); R07.0 Pain in throat; L59.8 Other specified disorders of the skin and subcutaneous tissue related to radiation; W88.8XXA Exposure to other ionizing radiation, initial encounter

== ENCOUNTER → 2023-10-18 | Outpatient (CLI) | payer MEDICARE, OTHER ==
[~2023-10-18] MED LIST changes: -MELO15TA28 PO; -TRAZ1TAB11 PO
== END ==
LOC: M WHC 10:58
PROVIDERS: ATTEND Nurse Practitioner Women's Health
DX: Z53.9 Procedure and treatment not carried out, unspecified reason (principal)

== ENCOUNTER → 2023-10-27 | Outpatient (CLI) | payer MEDICARE, OTHER ==
[~2023-10-27] MED LIST changes: +MELO15TA28 PO; +TRAZ1TAB11 PO
[2023-10-27] MEDS: dexAMETHasone 20MG/5ML VIAL IV ONE (10:16)
[2023-10-27] MEDS: NS 1,000 ML IV ONE (10:16)
[2023-10-27 10:18] LABS: BASO % 0.5 % (0.0-1.0); EOS % 0.4 % (0.0-3.0); HEMATOCRIT 40.5 % (36.0-47.0); HEMOGLOBIN 13.6 g/dl (12.0-15.5); LYMPH # 0.3 10^3/uL (1.5-5.0); LYMPH % 4.2 % (24.0-44.0); MEAN CORPUSCULAR HEMOGLOBIN 32.8 pg (27.0-33.0); MEAN CORPUSCULAR HGB CONC 33.6 g/dl (32.0-36.5); MEAN CORPUSCULAR VOLUME 97.6 fl (80.0-96.0); MONO # 0.9 10^3/uL (0.0-0.8); MONO % 12.8 % (2.0-8.0); NEUTROPHILS % 81.2 % (36.0-66.0); PLATELET COUNT, AUTOMATED 161 10^3/uL (150-450); RED BLOOD COUNT 4.15 10^6/uL (4.00-5.40); WHITE BLOOD COUNT 7.4 10^3/uL (4.0-10.0)
[2023-10-27 10:55] LABS: ALBUMIN 3.3 G/DL (3.2-5.2); BILIRUBIN,TOTAL 0.8 MG/DL (0.3-1.2); CALCIUM LEVEL 10.5 MG/DL (8.3-10.6); CREATININE FOR GFR 1.8 MG/DL (0.55-1.30); GLOMERULAR FILTRATION RATE 29.3 (>39); MAGNESIUM LEVEL 1.6 MG/DL (1.8-2.4); TOTAL PROTEIN 5.9 G/DL (5.7-8.2)
== END ==
LOC: M ONCR 09:18
PROVIDERS: ATTEND General Practice
DX: C01 Malignant neoplasm of base of tongue (principal); L59.8 Other specified disorders of the skin and subcutaneous tissue related to radiation; W88.8XXA Exposure to other ionizing radiation, initial encounter; R03.1 Nonspecific low blood-pressure reading; N18.9 Chronic kidney disease, unspecified; K12.33 Oral mucositis (ulcerative) due to radiation; Z79.891 Long term (current) use of opiate analgesic
CPT/HCPCS: 36415; 80053; 83735; 85025; G0463; J1100

== ENCOUNTER → 2023-10-31 | Outpatient (CLI) | payer MEDICARE, OTHER ==
[2023-10-31 15:28] LABS: BASO % 0.6 % (0.0-1.0); EOS % 0.5 % (0.0-3.0); HEMATOCRIT 37.9 % (36.0-47.0); HEMOGLOBIN 12.6 g/dl (12.0-15.5); LYMPH # 0.4 10^3/uL (1.5-5.0); LYMPH % 6.6 % (24.0-44.0); MEAN CORPUSCULAR HEMOGLOBIN 32.8 pg (27.0-33.0); MEAN CORPUSCULAR HGB CONC 33.2 g/dl (32.0-36.5); MEAN CORPUSCULAR VOLUME 98.7 fl (80.0-96.0); MONO # 0.8 10^3/uL (0.0-0.8); MONO % 12.1 % (2.0-8.0); NEUTROPHILS % 79.3 % (36.0-66.0); PLATELET COUNT, AUTOMATED 147 10^3/uL (150-450); RED BLOOD COUNT 3.84 10^6/uL (4.00-5.40); WHITE BLOOD COUNT 6.3 10^3/uL (4.0-10.0)
[2023-10-31 16:07] LABS: ALBUMIN 3.2 G/DL (3.2-5.2); BILIRUBIN,TOTAL 0.5 MG/DL (0.3-1.2); CALCIUM LEVEL 9.8 MG/DL (8.3-10.6); CREATININE FOR GFR 1.44 MG/DL (0.55-1.30); GLOMERULAR FILTRATION RATE 37.9 (>39); TOTAL PROTEIN 5.3 G/DL (5.7-8.2)
== END ==
LOC: M ONCR 14:47
PROVIDERS: ATTEND General Practice
DX: C01 Malignant neoplasm of base of tongue (principal); K12.33 Oral mucositis (ulcerative) due to radiation; L59.8 Other specified disorders of the skin and subcutaneous tissue related to radiation; W88.8XXA Exposure to other ionizing radiation, initial encounter
CPT/HCPCS: 36415; 80053; 85025; G0463

== ENCOUNTER → 2023-11-14 | Outpatient (CLI) | payer MEDICARE, OTHER | LOC: M ONCR 09:43 | PROVIDERS: ATTEND General Practice | DX: L59.8 Other specified disorders of the skin and subcutaneous tissue related to radiation (principal); W88.8XXA Exposure to other ionizing radiation, initial encounter; R43.8 Other disturbances of smell and taste ==

== ENCOUNTER → 2023-12-13 | Outpatient (CLI) | payer MEDICARE, OTHER | LOC: M RAD 11:31 | PROVIDERS: ATTEND Otolaryngology | DX: D44.0 Neoplasm of uncertain behavior of thyroid gland (principal) ==

== ENCOUNTER → 2024-01-06 | Outpatient (CLI) | payer MEDICARE, OTHER ==
[~2024-01-06] MED LIST changes: +LIDOCAINE 1% MDV 20ML VIAL As Ordered ONE
[2024-01-06 11:52] VITALS: BP 133/64; TEMP 97; O2SAT 98
== END ==
LOC: M IRPRO 11:41
PROVIDERS: ATTEND Otolaryngology
DX: D44.0 Neoplasm of uncertain behavior of thyroid gland (principal)

== ENCOUNTER → 2024-01-09 | Outpatient (CLI) | payer MEDICARE, OTHER ==
[~2024-01-09] MED LIST changes: -LIDOCAINE 1% MDV 20ML VIAL As Ordered ONE
== END ==
LOC: M PLARAD 09:54
PROVIDERS: ATTEND General Practice
DX: C01 Malignant neoplasm of base of tongue (principal)
CPT/HCPCS: 78815; A9552

== ENCOUNTER → 2024-01-18 | Outpatient (CLI) | payer MEDICARE, OTHER | LOC: M ONCR 10:02 | PROVIDERS: ATTEND General Practice | DX: C01 Malignant neoplasm of base of tongue (principal); Z85.3 Personal history of malignant neoplasm of breast; Z87.891 Personal history of nicotine dependence; Z92.21 Personal history of antineoplastic chemotherapy; Z92.3 Personal history of irradiation; C88.41 Extranodal marginal zone B-cell lymphoma of mucosa-associated lymphoid tissue [MALT-lymphoma], in remission; Z91.048 Other nonmedicinal substance allergy status; Z91.040 Latex allergy status; Z79.01 Long term (current) use of anticoagulants; Z79.1 Long term (current) use of non-steroidal anti-inflammatories (NSAID); Z79.82 Long term (current) use of aspirin; Z79.811 Long term (current) use of aromatase inhibitors; Z79.899 Other long term (current) drug therapy | CPT/HCPCS: 31575; G0463 ==

== ENCOUNTER → 2024-04-11 | Outpatient (CLI) | payer MEDICARE, OTHER | LOC: M WHC 09:23 | PROVIDERS: ATTEND Nurse Practitioner Women's Health | DX: C50.911 Malignant neoplasm of unspecified site of right female breast (principal) | CPT/HCPCS: 77066; G0279 ==

== ENCOUNTER → 2024-04-13 | Outpatient (CLI) | payer MEDICARE, OTHER | LOC: M RAD 12:51 | PROVIDERS: ATTEND General Practice | DX: C01 Malignant neoplasm of base of tongue (principal) ==

== ENCOUNTER → 2024-04-20 | Outpatient (CLI) | payer MEDICARE, OTHER ==
[~2024-04-20] MED LIST changes: +LEVO50TA5 PO; +PANT40TA29 PO
[2024-04-20 11:18] LABS: FREE T3 3.2 PG/ML (2.3-4.2)
[2024-04-20 11:19] LABS: FREE T4 0.89 NG/DL (0.89-1.76); THYROID STIMULATING HORMONE 9.822 uIU/ML (0.55-4.78)
== END ==
LOC: M ONCR 10:00
PROVIDERS: ATTEND General Practice
DX: C01 Malignant neoplasm of base of tongue (principal); C50.411 Malignant neoplasm of upper-outer quadrant of right female breast; C85.19 Unspecified B-cell lymphoma, extranodal and solid organ sites; Z92.21 Personal history of antineoplastic chemotherapy; Z92.3 Personal history of irradiation; Z87.891 Personal history of nicotine dependence; Z91.048 Other nonmedicinal substance allergy status; Z91.040 Latex allergy status; Z79.811 Long term (current) use of aromatase inhibitors; Z79.1 Long term (current) use of non-steroidal anti-inflammatories (NSAID); Z79.899 Other long term (current) drug therapy; Z79.82 Long term (current) use of aspirin; E46 Unspecified protein-calorie malnutrition; Z59.86 Financial insecurity
CPT/HCPCS: 31575; 36415; 84439; 84443; 84481; G0463

== ENCOUNTER → 2024-04-25 | Outpatient (CLI) | payer MEDICARE, OTHER | LOC: M RAD 14:03 | PROVIDERS: ATTEND Physician Assistant | DX: I73.9 Peripheral vascular disease, unspecified (principal) ==

== ENCOUNTER → 2024-05-01 | Outpatient (CLI) | payer MEDICARE, OTHER ==
[~2024-05-01] MED LIST changes: +LIDOCAINE 1% MDV 20ML VIAL As Ordered ONE
[2024-05-01 12:05] VITALS: TEMP 97.9
[2024-05-01 12:46] VITALS: BP 176/3; O2SAT 98
== END ==
LOC: M IRPRO 11:54
PROVIDERS: ATTEND Otolaryngology
DX: D44.0 Neoplasm of uncertain behavior of thyroid gland (principal)

== ENCOUNTER → 2024-06-13 | Outpatient (REF) | payer MEDICARE, OTHER ==
[~2024-06-13] MED LIST changes: +DENO60SY2 SC; -LIDOCAINE 1% MDV 20ML VIAL As Ordered ONE; -PROL60SO SC; +[UNRECOGNIZED DRUG - CODE] PO
[2024-06-13 14:37] LABS: FREE T3 2.5 PG/ML (2.3-4.2)
[2024-06-13 14:38] LABS: THYROID PEROXIDASE ANTIBODY 42 U/ML (<60.0)
[2024-06-13 16:59] LABS: THYROGLOBULIN ANTIBODY < 15.0 U/ML (<60.0)
== END ==
LOC: M LAB REF 12:32
PROVIDERS: ATTEND Nurse Practitioner Adult Health
DX: E03.9 Hypothyroidism, unspecified (principal)

== ENCOUNTER → 2024-06-29 | Outpatient (CLI) | payer MEDICARE, OTHER | LOC: M WHC 07:28 | PROVIDERS: ATTEND Nurse Practitioner Adult Health | DX: R74.01 Elevation of levels of liver transaminase levels (principal) ==

== ENCOUNTER → 2024-09-11 | Outpatient (CLI) | payer MEDICARE, OTHER | LOC: M PLARAD 12:47 | PROVIDERS: ATTEND Internal Medicine Hematology & Oncology | DX: C01 Malignant neoplasm of base of tongue (principal) | CPT/HCPCS: 78815; A9552 ==

== ENCOUNTER → 2024-10-11 | Outpatient (CLI) | payer MEDICARE, OTHER ==
[~2024-10-11] MED LIST changes: +ISOVUE-370 76% 100 ML VIAL As Ordered ONE
== END ==
LOC: M RAD 10:23
PROVIDERS: ATTEND General Practice
DX: C01 Malignant neoplasm of base of tongue (principal); J98.11 Atelectasis; J43.2 Centrilobular emphysema; R91.8 Other nonspecific abnormal finding of lung field; I70.0 Atherosclerosis of aorta; I25.10 Atherosclerotic heart disease of native coronary artery without angina pectoris; N28.1 Cyst of kidney, acquired

== ENCOUNTER → 2024-10-18 | Outpatient (CLI) | payer MEDICARE, OTHER ==
[~2024-10-18] MED LIST changes: -ISOVUE-370 76% 100 ML VIAL As Ordered ONE
== END ==
LOC: M ONCR 09:41
PROVIDERS: ATTEND General Practice
DX: Z08 Encounter for follow-up examination after completed treatment for malignant neoplasm (principal); Z85.3 Personal history of malignant neoplasm of breast; Z85.810 Personal history of malignant neoplasm of tongue; C85.19 Unspecified B-cell lymphoma, extranodal and solid organ sites; Z92.21 Personal history of antineoplastic chemotherapy; Z92.3 Personal history of irradiation; Z87.891 Personal history of nicotine dependence; Z91.040 Latex allergy status; Z91.048 Other nonmedicinal substance allergy status; Z79.1 Long term (current) use of non-steroidal anti-inflammatories (NSAID); Z79.82 Long term (current) use of aspirin; Z79.891 Long term (current) use of opiate analgesic; Z79.899 Other long term (current) drug therapy; R91.8 Other nonspecific abnormal finding of lung field
CPT/HCPCS: 31575; G0463

== ENCOUNTER → 2024-11-02 | Outpatient (CLI) | payer MEDICARE, OTHER | LOC: M RAD 10:09 | PROVIDERS: ATTEND Surgery Vascular Surgery | DX: I73.9 Peripheral vascular disease, unspecified (principal) ==

== ENCOUNTER → 2024-11-15 | Outpatient (CLI) | payer MEDICARE, OTHER | LOC: M RAD 12:23 | PROVIDERS: ATTEND Otolaryngology | DX: E04.1 Nontoxic single thyroid nodule (principal) ==

== ENCOUNTER → 2025-01-15 | Outpatient (CLI) | payer MEDICARE, OTHER | LOC: M PLAIMG 12:43 | PROVIDERS: ATTEND Internal Medicine Medical Oncology | DX: C50.911 Malignant neoplasm of unspecified site of right female breast (principal); C01 Malignant neoplasm of base of tongue; C85.90 Non-Hodgkin lymphoma, unspecified, unspecified site; I25.10 Atherosclerotic heart disease of native coronary artery without angina pectoris; I70.0 Atherosclerosis of aorta; K82.1 Hydrops of gallbladder; M15.9 Polyosteoarthritis, unspecified; R22.1 Localized swelling, mass and lump, neck ==

== ENCOUNTER → 2025-01-23 | Outpatient (CLI) | payer MEDICARE, OTHER | LOC: M ONCR 09:39 | PROVIDERS: ATTEND General Practice | DX: C01 Malignant neoplasm of base of tongue (principal); R59.0 Localized enlarged lymph nodes; Z79.891 Long term (current) use of opiate analgesic; Z79.899 Other long term (current) drug therapy; Z85.3 Personal history of malignant neoplasm of breast; Z87.891 Personal history of nicotine dependence; Z91.040 Latex allergy status; Z91.048 Other nonmedicinal substance allergy status; Z92.21 Personal history of antineoplastic chemotherapy; Z92.3 Personal history of irradiation | CPT/HCPCS: 10005; 31575; 88173; G0463 ==